=== PATIENT | female | born 1985 | race Caucasian/White ===

== ENCOUNTER 2022-03-06 11:28 | Outpatient (CLI) | payer OTHER, SELFPAY | END 2022-03-06 23:59 | disposition home or self-care (01) | LOC: PSN 11:34 | PROVIDERS: Referring Provider Physician Assistant; Visit Provider Physician Assistant | DX: Z20.822 Contact with and (suspected) exposure to COVID-19 (principal) | CPT/HCPCS: 87635; C9803; U0003; U0005 ==